=== PATIENT | male | born 1955 | race Caucasian/White ===

== ENCOUNTER 2024-11-26 07:00 | Day surgery (SDC) | payer MEDICARE, OTHER, SELFPAY ==
[2024-11-26] VITALS (12 sets, daily range): BP systolic 136–170; BP diastolic 73–122; BMI 26.0
[2024-11-26 09:41] LABS: ACT-LR - POC 343 Seconds (116-155)
--- NOTE | 2024-11-26 10:45 | ITS.CL.ANGIO ---
Commissioning Manager - Angioplasty
Angioplasty
Procedure Report:
CARDIAC CATHETERIZATION REPORT
Date of Procedure: 11/26/2024
Referring: Liban Alicea M.D.
Indication: Shortness of breath on exertion, high risk stress test (apical perfusion defect with distal anteroseptal hypokinesis, LVEF 30%), preoperative evaluation.
PROCEDURE:
1. Right heart catheterization.
2. Coronary angiography.
3. Left heart catheterization.
4. Successful IFR of the proximal and mid LAD.
5. Successful IFR of the proximal D1.
6. Successful intravascular ultrasound of the left main coronary artery.
7. Successful intravascular ultrasound of the left circumflex.
8. Successful IFR of the left circumflex.
9. Successful IVUS guided PCI of the proximal D1.
10. Successful intracoronary lithotripsy of the proximal and mid LAD.
11. Successful IVUS guided PCI of the proximal and mid LAD.
A total of 107 minutes of procedural/moderate sedation was utilized. An independent medical concierge was present to assist with and help manage the patient's level of consciousness and physiologic status.
ACCESS:
1. 6 American right artery using a modified Seldinger technique.
2. 5 American right antecubital vein using a modified Seldinger technique under ultrasound guidance.
CATHETERS:
1. 5 American balloon with.
2. 5 American JR4.
3. 5 American JL 3.5.
4. 6 American EBU 3.5 guiding catheter.
HEMODYNAMIC DATA
Weight (kg): 70.8
AO (s/d/x, mmHg): 161/77/111
LV (s/x, mmHg): 161/17
PCWP (a/v/x, mmHg): 25/25/19
PA (s/d/x, mmHg): 42/20/27
RV (s/x, mmHg): 42/9
RA (a/v/x, mmHg): 12/05/10
SVC SvO2 (%): 76.1
IVC SvO2 (%): Not obtained.
RA SvO2 (%): Not obtained.
RV SvO2 (%): Not obtained.
PA SvO2 (%): 70.2
SaO2 (%): 90.8
Hbg (g/dL): 13.0
ELIAS
CO (L/min): 5.70
CI (L/min/m2): 3.20
Thermodilution
CO (L/min): Not performed.
CI (L/min/m2): Not performed.
TPG (mmHg): 8
PVR (Holman Units): 1.40
SVR (dynes*seconds*cm^-5): 1418
AVO2 Diff (Volume %): 3.64
AV gradient (x, mmHg): None.
AV area (cm2): Normal.
MV gradient (x, mmHg): Not obtained.
MV area (cm2): Not obtained.
LEFT VENTRICULOGRAPHY: Not performed.
AORTOGRAPHY: Not performed.
CORONARY ANGIOGRAPHY
Dominance: Right.
Left Main: Normal size, bifurcating vessel. There is a 30-40% lesion in the mid shaft left main.
LAD: Normal size vessel giving rise to 2 diagonals. The first diagonal is a large vessel that supplies the majority of the anterolateral wall. The second diagonal is a small, 1.5 mm vessel with an acute angulation. There is a densely
calcified, 70% lesion in the mid LAD that extends both proximal and distal, spanning the origin of both diagonals. There is a 70% lesion in the proximal margin of the first diagonal. There is a 90% lesion in the ostium of the small second diagonal
with an upwards and backward origin.
Ramus: Congenitally absent.
Circumflex: Large size, nondominant vessel giving rise to 2 obtuse marginals. There is a 30-40% lesion in the proximal circumflex prior to the origin of the obtuse marginals.
RCA: Large size, dominant vessel. There are minor luminal irregularities with dense external calcification.
INTERVENTIONS
1. Successful IFR of the 70% mid LAD lesion, demonstrating occlusive disease (IFR = 0.72)
2. Successful IVUS of the left main coronary artery from both the LAD and the left circumflex, demonstrating nonocclusive but densely calcified mid shaft lesion (minimal luminal area 8-10 mm�).
3. Successful IFR of the 30-40% proximal circumflex lesion, demonstrating nonocclusive disease (IFR = 0.96)
4. Successful IFR of the 70% proximal D1 lesion (IFR = 0.86).
5. Successful IVUS guided PCI of the 70% proximal D1 lesion ([employer] [place] 3.0 x 18 MICKIE using a backstop technique, postdilated with a 3.0 x 12 NC balloon) with reduction in stenosis to 0%, maintaining CHAZ-3 flow.
6. Successful intracoronary lithotripsy of the proximal and mid left anterior descending artery (Shockwave 3.5 x 12 coronary lithotripsy balloon).
7. Successful IVUS guided PCI of the proximal and mid LAD (Medtronic [place] 3.5 x 38 MICKIE, postdilated with a 3.5 x 20 NC balloon) with reduction in stenosis to 0%, maintaining CHAZ-3 flow throughout the LAD and diagonal.
Narrative:
The decision was made to perform physiologic testing. The diagnostic catheter was removed over a wire and exchanged for a(n) 6 American EBU 3.5 guiding catheter. The guiding catheter was advanced into the ascending aorta and seated in the left main
coronary artery. Additional heparin was given to obtain an ACT greater than 250 seconds. An iFR wire was zeroed outside of the body, then inserted into the guiding sheath. The wire was advanced and the transducer was normalized just outside of the
guiding catheter tip. The wire was advanced into the mid LAD, beyond the lesion in question. Three iFR measurements were taken. The lesion was determined to be occlusive (0.72).
The decision was made to perform intracoronary imaging. After crossing the lesion with a power turn flex coronary wire, an IVUS catheter was advanced through the guiding catheter and into the ostium of the left main coronary artery. Ring down was
performed once the imaging crystal was no longer inside of the guiding catheter. The IVUS catheter was advanced into the proximal LAD, but would not progress beyond the area near the first diagonal. Intravascular ultrasound was performed in a
retrograde fashion using a slow pullback. Intracoronary imaging demonstrated significant atherosclerotic disease in the LAD near the first diagonal with nonocclusive calcific disease in the ostial LAD and an area of dense calcification in the left
main coronary artery. The power turn flex wire was redirected down the left circumflex artery and the IVUS catheter was advanced into the left circumflex artery. Intravascular ultrasound was performed in a retrograde fashion using a slow pullback.
This demonstrated a significant burden of atherosclerotic disease in the proximal circumflex and redemonstrated the densely calcified left main lesion. Minimal luminal area of the mid left main coronary artery stenosis was between 8 mm� and 10 mm�
depending on the IVUS run.
The decision was made to perform physiologic testing on the 30-40% circumflex lesion, given the IVUS findings. The iFR wire was zeroed outside of the body, then inserted into the guiding sheath. The wire was advanced and the transducer was
normalized just outside of the guiding catheter tip. The wire was advanced into the distal AV groove circumflex. Three iFR measurements were taken. The lesion was determined to be nonocclusive (0.96).
Observing that the left main coronary artery and circumflex were not occlusive, the decision was made to proceed with intervention on the LAD and diagonal systems. The Power Turn Flex wire was advanced into the diagonal. A BMW wire was advanced
into the distal LAD. IVUS was performed in the diagonal artery, allowing us to observe the anatomy and determine ideal stent placement. Vessel sizing was performed.
The 70% D1 lesion was predilated with a 3.0 x 12 semi-compliant balloon to 12 dane. The semi-compliant balloon was removed and a [employer] [place] 3.0 x 18 drug-eluting stent was advanced into the diagonal. We took this opportunity to advance
the 3.0 x 12 semicompliant balloon into the LAD over the BMW wire to perform a backstop technique. Meticulous care was taken while positioning the diagonal stent. After positioning the semicompliant balloon at the origin of the diagonal, the
balloon was inflated to 12 dane. With the LAD balloon inflated, the diagonal stent was pulled back until it abutted the inflated balloon in the LAD. The stent was deployed at 12 atmospheres. As the stent balloon inflated, the LAD balloon was
deflated and withdrawn. The stent balloon was removed. A 3.0 x 12 noncompliant balloon was advanced into the stent and the stent was postdilated to 18 atmospheres. The noncompliant balloon was removed and IVUS was repeated. This showed excellent
stent expansion and apposition throughout the proximal diagonal lesion, also demonstrating that the stent did not protrude into the left anterior descending artery. The IVUS catheter and power turn flex wire were withdrawn.
A 6 American Angio-Seal was advanced into the LAD over the 3.0 x 12 semicompliant balloon. With the GuideLiner in position in the LAD, the entire proximal mid LAD lesion was dilated to 8 dane throughout its length. Given the dense calcification seen
on angiography and confirmed on IVUS, the decision was made to move forward with plaque modification.
A Shockwave 3.5 x 12 coronary lithotripsy balloon was advanced over the wire and into the mid LAD lesion. The balloon was sterilely connected to the controller and prepped to negative pressure. Meticulous care was taken while positioning the
shockwave balloon. Once in satisfactory position, the balloon was inflated to 4 dane. After confirming good contact with the vessel wall, 10 pulses were delivered. After delivering 10 pulses, the balloon was inflated to 6 dane then deflated. The
entire lesion was treated in a similar manner for total of 5 rounds.
The Shockwave balloon was removed and a Medtronic [place] 3.5 x 38 drug-eluting stent was advanced. The stent was deployed at 12 atmospheres. The stent balloon was removed. A 3.5 x 20 noncompliant balloon was advanced into the stent and the
stent was postdilated to 16 atmospheres. The noncompliant balloon was withdrawn and IVUS was repeated showing good stent apposition with some mild underexpansion. The IVUS catheter was removed and the 3.5 x 20 NC balloon was readvanced. The mid
and proximal stent was postdilated to 18 dane. The noncompliant balloon was withdrawn.
Angiography was performed in orthogonal views, confirming good stent expansion and an excellent angiographic result. The coronary wire was withdrawn and the guide was disengaged from the artery. The catheter was removed over a standard J-wire.
Closure Device: Vascular band for the right radial artery, manual pressure for the right antecubital vein.
Radiation dose (mGy): 1874.93
DAP (cm2.Gy): 132.90
Fluoroscopy time (minutes): 32.8
CONCLUSIONS:
1. Right dominant circulation with dense external calcification of the RCA with minor luminal irregularities, a nonocclusive 30-40% lesion in the midshaft left main coronary artery (IVUS MLA = 8-10 mm�), a nonocclusive 30-40% lesion in the mid
circumflex (IFR = 0.96), and occlusive 70% lesion in the proximal margin of the first diagonal (IFR = 0.86) status post successful IVUS guided PCI ([employer] [place] 3.0 x 18 MICKIE using a backstop technique, postdilated with a 3.0 x 12 NC
balloon) and an densely calcified, occlusive (IFR = 0.72), 70% lesion in the mid LAD that spans the origins of both diagonals, status post intracoronary lithotripsy (shockwave 3.5 x 12 lithotripsy balloon) and successful IVUS guided PCI ([employer]onic
[place] 3.5 x 38 MICKIE, postdilated with a 3.5 NC balloon) with reduction in all treated stenoses to 0%, maintaining CHAZ-3 flow in D1 and LAD proper with loss of the small, 1.5 mm D2.
2. Mild to moderately elevated filling pressures (LVEDP = 17 mmHg, PCWP = 19 mmHg at 70.8 kg).
3. 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
RECOMMENDATIONS:
1. Expectant management after cardiac catheterization via right radial approach.
2. Limited weight bearing on the right wrist for one week.
3. Dual antiplatelet therapy with aspirin and clopidogrel for at least 12 months, followed by aspirin indefinitely. We can consider a brief interruption for potential hernia surgery after at least 3 months, preferably 6 months.
4. Aggressive secondary prevention with ezetimibe and high-dose, high potency statin. Goal LDL <55.
5. OMT/GDMT as hemodynamics will tolerate.
6. Repeat echocardiogram in 3 months.
7. Referral to cardiac rehab.
Copy to: Liban Alicea M.D.
Peter Johnson DO, FACC, FACP
[2024-11-26 11:24] LABS: ACT-LR - POC > 397 Seconds (116-155)
[2024-11-26 11:24] LABS: ACT-LR - POC > 397 Seconds (116-155)
--- NOTE | 2024-11-26 11:59 | PTCARENOTE ---
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 aware of discoloration of hand and lack of pulse ox being obtained. states he is smoker and hand will look that way. pt has no pain in hand , no nubmness in fingertips .hand is warming up and fingertips are pink.
[2024-11-26] MEDS: CATAPRES 0.1 MG PO (14:38)
[2024-11-26] MEDS: ZETIA 10 MG PO (14:38)
[2024-11-26] MEDS: LIPITOR 40 MG PO (14:41)
--- NOTE | 2024-11-26 16:33 | W.PN.UPDATE ---
Update Note
Progress Note Update
Pt seen post LAD PCI. Right radial cath site without ht/bleeding. OOB ambulating, urinating without difficulty. Post EKG NSR 75, no acute changes. Understands the importance of uninterrupted DAPT w/asa, plavix. Cardiac rehab consulted. Pt encouraged
to quit tobacco abuse- 50+yr history. Surgical hernia repair will have to be delayed at this time, to get clearance from primary commercial credit lead, Dr. Alicea. Followup as scheduled. Home today if groin site/tele remain stable.
== END 2024-11-26 16:30 | disposition home or self-care (01) ==
LOC: CATH 07:00
PROVIDERS: ATTENDING PHYSICIAN Internal Medicine Cardiovascular Disease; OTHER PHYSICIAN Internal Medicine Cardiovascular Disease
DX: I25.10 Atherosclerotic heart disease of native coronary artery without angina pectoris (principal); Z79.02 Long term (current) use of antithrombotics/antiplatelets; Z79.82 Long term (current) use of aspirin; I10 Essential (primary) hypertension; E78.5 Hyperlipidemia, unspecified; Z79.899 Other long term (current) drug therapy; F17.210 Nicotine dependence, cigarettes, uncomplicated; I42.9 Cardiomyopathy, unspecified; I27.29 Other secondary pulmonary hypertension
CPT/HCPCS: 92978; 92979 ×2; 92972; 93799 ×2; 99152; 99153; C1761; 85347; 93005; 93460; C1725; C1753; C1769; C1874; C1894; C9600; C9601